=== PATIENT | female | born 1940 | race Caucasian/White ===

== ENCOUNTER → 2016-10-14 | Outpatient (CLI) | payer MEDICARE ==
--- NOTE | 2016-10-17 10:01 | Diagnostic Imaging Report ---
EXAMINATION: Bilateral screening mammogram with a Computer Aided Detection (CAD) system. INDICATION: Screening. PERSONAL HISTORY: No current complaints stated on the questionnaire. COMPARISON: 01/09/2013. FINDINGS: The breasts are composed of heterogeneously dense parenchyma which may decrease mammographic sensitivity. There are scattered benign-appearing calcifications. Allowing for technique and positional differences, no suspicious change is seen. IMPRESSION: Dense breasts with no definite change. ACR BI-RADS Category 2: Benign findings. Result letter will be mailed to the patient. Note: At least 10% of breast cancer is not imaged by mammography. Dictated by: Dictated on workstation # [id number]
== END ==
LOC: RAD 10:33
PROVIDERS: ATTEND Nurse Practitioner
DX: Z12.31 Encounter for screening mammogram for malignant neoplasm of breast (principal)
CPT/HCPCS: 77067

== ENCOUNTER → 2022-08-03 | Outpatient (CLI) | payer MEDICARE ==
--- NOTE | 2022-08-03 16:33 | Diagnostic Imaging Report ---
Indication: Back pain. Time of Exam: 1:45 PM AP views as well as a lateral neutral, flexion and extension views of the lumbar spine were obtained. Note is made of scattered air-fluid levels throughout the small bowel in the central abdomen, nonspecific. There is generalized demineralization throughout the lumbar spine. Vertebral body heights appear to be fairly well maintained without evidence of acute compression fracture. There is multilevel degenerative disc and facet disease. There is variable disc space narrowing noted. Flexion and extension views are without evidence of definite motion. The aorta is heavily calcified. IMPRESSION: Significant demineralization and lumbar spondylosis. No definite motion during flexion or extension maneuvers is identified. Dictated by: Dictated on workstation # [id number]
== END ==
LOC: RAD 13:24
PROVIDERS: ATTEND Pain Medicine Interventional Pain Medicine
DX: M47.26 Other spondylosis with radiculopathy, lumbar region (principal)
CPT/HCPCS: 72110

== ENCOUNTER → 2022-08-18 | Outpatient (CLI) | payer MEDICARE ==
--- NOTE | 2022-08-18 14:40 | Diagnostic Imaging Report ---
CLINICAL INDICATION: Patient with low back pain. No known injury. EXAM: MRI of the lumbar spine performed without IV contrast. Sequences include sagittal T2, sagittal T1, sagittal T2 fat-sat, and axial T2. COMPARISON: X-ray lumbar spine dated 08/03/2022. FINDINGS: There is no acute lumbar spine fracture or dislocation. There is no significant Modic degenerative signal changes. There is no significant paraspinal soft tissue abnormality. The visualized portions of the distal thoracic spinal cord, conus medullaris, and cauda equina nerve roots are unremarkable. The conus medullaris tip is seen at the L1-L2 intervertebral level. L1-L2: There is no significant disk bulge. There is mild to moderate bilateral facet arthropathy. There is no significant central canal or neural foramen narrowing. L2-L3: There is a mild diffuse disk bulge with mild loss of disk space height. There is severe bilateral facet arthropathy and ligamentum flavum buckling. There is mild central canal stenosis and severe bilateral neural foramen narrowing. L3-L4: There is mild diffuse disk bulge. There is severe bilateral facet arthropathy/hypertrophy. There is mild central canal stenosis. There is moderate to severe bilateral neural foramen narrowing. L4-L5: There is mild diffuse disk bulge. There is severe bilateral facet arthropathy/hypertrophy. There is severe central canal stenosis. There is moderate to severe right neural foramen narrowing and moderate left neural foramen narrowing. L5-S1: There is severe bilateral facet arthropathy with hypertrophic changes in the right side. There is no significant central canal or neural foramen narrowing. 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 Dictated by: Dictated on workstation # [id number]
== END ==
LOC: RAD 13:15
PROVIDERS: ATTEND Pain Medicine Interventional Pain Medicine
DX: M47.26 Other spondylosis with radiculopathy, lumbar region (principal); M51.16 Intervertebral disc disorders with radiculopathy, lumbar region; M48.061 Spinal stenosis, lumbar region without neurogenic claudication; M89.38 Hypertrophy of bone, other site
CPT/HCPCS: 72148